=== PATIENT | male | born 1975 | race Asian ===

== ENCOUNTER 2018-11-16 06:01 | Day surgery (SDC) | payer OTHER ==
[~2018-11-16] VITALS: Ht 162.6 cm; Wt 69.9 kg
[2018-11-16] MEDS ORDERED: LIDOCAINE 2% PF 5 ML VIAL. ONE (06:35)
[2018-11-16] MEDS ORDERED: ONDANSETRON PF 4 MG/2 ML VIAL. ONE (06:35)
[2018-11-16] MEDS ORDERED: PROPOFOL 20 ML IV ONE ×2 (06:35→08:35)
[2018-11-16] MEDS ORDERED: DEXAMETHASONE SOD PHOS 20 MG/5 ML VIAL. ONE (06:35)
[2018-11-16] MEDS ORDERED: ROCURONIUM 50 MG/5 ML VIAL. ONE (06:35)
[2018-11-16] MEDS ORDERED: AMOX875T PO (06:44)
[2018-11-16] MEDS ORDERED: ALBU2.5V8 INH (06:44)
[2018-11-16] MEDS ORDERED: LIDOCAINE 2% TOPICAL JELLY 30GM TUBE. TP ONE (06:55)
[2018-11-16] MEDS ORDERED: GELATIN SPONGE SIZE 100. ONE (06:55)
[2018-11-16] MEDS ORDERED: BUPIVAC MPF-EPI 0.5%-1:200000 30 ML VIAL. ONE (06:55)
[2018-11-16] MEDS ORDERED: LIDOCAINE 1% PF 2 ML VIAL. ID PRN (07:00)
[2018-11-16] MEDS ORDERED: PROCHLORPERAZINE 10 MG/2 ML VIAL. IV PRN (07:00)
[2018-11-16] MEDS ORDERED: MORPHINE SULFATE 4 MG/ML VIAL. IV PRN (07:00)
[2018-11-16] MEDS ORDERED: IV RINGERS,LACTATED 1000ML 1,000 ML IV SCH (07:00)
[2018-11-16] MEDS ORDERED: ONDANSETRON PF 4 MG/2 ML VIAL. IV PRN (07:00)
[2018-11-16] MEDS ORDERED: fentaNYL PF VIAL 100 MCG/2 ML VIAL IV PRN ×2 (07:00)
[2018-11-16] MEDS ORDERED: HYDROmorphone 2 MG/ML VIAL IV PRN (07:00)
[2018-11-16] MEDS ORDERED: MIDAZOLAM HCL/PF 2 MG/2 ML VIAL. ONE (07:43)
[2018-11-16] MEDS ORDERED: fentaNYL PF VIAL 100 MCG/2 ML VIAL ONE (07:44)
[2018-11-16] MEDS ORDERED: ePHEDrine PF IN SALINE 50 MG/5 ML DISP.SYRIN IV ONE (08:16)
[2018-11-16] MEDS ORDERED: PHENYLEPHRINE in 0.9% NACL PF 1 MG/10 ML SYRINGE. IV ONE (08:16)
[2018-11-16] MEDS ORDERED: NEOSTIGMINE 10 MG/10 ML VIAL. ONE (08:19)
[2018-11-16] MEDS ORDERED: GLYCOPYRROLATE 1 MG/5 ML VIAL. ONE (08:19)
[2018-11-16] MEDS ORDERED: LIDOCAINE 2% 100 MG/5 ML SYRINGE. ONE (08:45)
[2018-11-16] MEDS ORDERED: SEVOFLURANE 31 TO 60 MINUTES. IH ONE (08:46)
[2018-11-16] MEDS ORDERED: NEOMY/BACITR/POLYMYXIN OINT PACKET. TP ONE (08:50)
[2018-11-16] MEDS ORDERED: LIDOCAINE 2% JELLY 6ML IN APPLICATOR. ONE (08:59)
--- NOTE | 2018-11-16 09:25 | PDOC ---
BRIEF OPERATIVE NOTE Date: Nov 16, 2018 Pre-Op Diagnosis skin lesion left buttocks pain, bleeding with bowel movements Post-Op Diagnosis same 2/2 anal fissure at 12:00, internal hemorrhoid Procedure Performed EUA rigid proctoscopy hemorrhoidectomy LIS Surgeon Maury Anesthesia Type: General Blood Loss 25cc IV Fluid 800cc Specimens Obtained skin lesion left buttocks hemorrhoid perianal skin tag Findings fissure at 12:00 internal hemorrhoid at 6:00 Complications none Operative Note Wk # [id number] DOMINGO ARROYO MD Nov 16, 2018 09:25
[2018-11-16] MEDS ORDERED: POLYETHYLENE GLYCOL 3350 BTL 238 GM POWDER PO ONE (10:00)
[2018-11-16] MEDS ORDERED: oxyCODONE/APAP 5/325 1 TAB TABLET PO ONE (10:00)
[2018-11-16] MEDS ORDERED: OXYC1TAB15 PO (10:00)
[2018-11-16] MEDS ORDERED: POLY119P4 PO (10:00)
--- NOTE | 2018-11-16 10:00 | OP ---
DATE OF SURGERY: 11/16/2018 PREOPERATIVE DIAGNOSES: Skin lesion, left buttock and bleeding with bowel movements and pain with bowel movements. POSTOPERATIVE DIAGNOSES: Skin lesion, left buttock and bleeding with bowel movements and pain with bowel movements secondary to anal fissure at 12 o'clock, internal hemorrhoid. PROCEDURES: 1. Exam under anesthesia. 2. Rigid proctoscopy. 3. Hemorrhoidectomy. 4. Lateral internal sphincterotomy. SURGEON: Domingo Arroyo M.D. ANESTHESIA: General endotracheal. ESTIMATED BLOOD LOSS: 25 mL. IV FLUIDS: 800 mL. INDICATIONS: The patient is a 42-year-old with pain and bleeding with stools. OPERATIVE FINDINGS: Fissure at 12 o'clock, internal hemorrhoid at 6 o'clock and verruca skin lesion, left buttocks. DESCRIPTION OF PROCEDURE: The patient was brought to the operating suite, given a general endotracheal anesthetic and placed in the prone jackknife position. Digital rectal exam done, which revealed some hypertrophy of the internal sphincter as well as a fissure with sentinel polyp at 12 0'clock. Rigid cystoscope inserted and under direct vision, advanced to 20 cm from the anal verge. Scope was slowly removed. No abnormalities seen, save an internal hemorrhoid at 6 o'clock and above-mentioned external findings. Marcaine 0.5% with epinephrine was infiltrated circumanally. The hemorrhoid at 6 o'clock was removed by placing a proximal 2-0 chromic stitch in the anal canal, incised in the perianal skin and removing the hemorrhoid with LigaSure. The 2-0 chromic was used to close the mucosa. With two fingers in the anal canal, the lateral internal sphincterotomy was isolated at 3 o'clock. A #11 blade was used to divide the sphincter and a gentle 3-finger dilatation carried out. Skin tag at 12 o'clock excised. Hemostasis obtained with local anesthetic and pressure at the 3 o'clock position. When hemostasis was present, the Gelfoam pack was placed in anal canal and sterile dressing applied. Prior to the hemorrhoidectomy and rigid proctoscope, the skin lesion was excised after infiltrating the base with local anesthetic. Wound closed with interrupted 4-0 nylon suture. Sterile dressing applied. The patient was taken out of the prone position, awakened from his anesthetic and taken to the recovery room in satisfactory condition. DOMINGO ARROYO MD DR: George JOB#: [id number] / [id number]
[2018-11-16 10:30] VITALS: BP 126/74
--- NOTE | 2018-11-16 10:45 | DISCH ---
DISCHARGE INSTRUCTIONS Condition on Discharge Condition on Discharge: Stable Activity After Discharge Activity Instructions for Disc: Avoid exertion Lifting Instructions after Dis: No heavy lifting Driving Instructions after Dis: Do not drive today Diet after Discharge Diet after Discharge: Regular Additional Diet Restrictions: STOOL SOFTENERS Wound Incision Care Other wound/incision instructi: SITZ BATHES SEVERAL TIMES A DAY Follow-Up Follow up with: next week DOMINGO ARROYO MD Nov 16, 2018 10:45
--- NOTE | 2018-11-19 17:09 | PATHOLOGY ---
[facility] Accession Number: [id number] . 01 Material submitted: . PART A: SKIN LESION LEFT BUTTOCK PART B: HEMORRHOID PART C: PERIANAL SKIN TAG . 01 Clinical history: . A: Excision lesion left buttock B and C: Hemorrhoid . 02 Diagnosis: A. Skin and subcutaneous tissue, left buttock lesion: - Acrochordon (fibroepithelial polyp). . B. Polypoid segment of anal skin and anorectal mucosa, hemorrhoidectomy: - Hemorrhoids. . C. Segment of skin, perianal region: - Neuroma, with associated fibrosis. . (JPM:mm; 11/19/2018) [facility]/11/19/2018 . 02 Comment: There is no evidence of malignancy. . (JPM:mml; 11/19/2018) . 02 Electronically signed: . Tonny Winters MD, Pathologist NPI- [id number] . 01 Gross description: . A. The specimen is received in formalin, labeled "Tuyet Lewis, skin lesion, left buttock", is a elliptical, ann-brown skin measuring 1.2 x 0.8 cm excised to a depth of 0.8 cm. The skin surface displays a polypoid ann-brown lesion measuring 3.0 x 1.5 x 1.5 cm. The specimen is serially sectioned to show a lancaster-pink cut surface. The specimen is entirely submitted in A1-A3. . B. The specimen is received in formalin, labeled "Tuyet Lewis, hemorrhoid", is a distended, lancaster purple hemorrhoid measuring 2.2 x 1.6 x 1.4 cm. The specimen is serially sectioned to reveal a hemorrhagic cut surface. Instructional Aide tissue is submitted in B1. . C. The specimen is received in formalin, labeled "Debbie, Tuyet, perianal skin tag", is a dome-shaped [id number] skin measuring 1.0 x 0.6 x 0.3 cm. The specimen is inked black, longitudinally bisected and entirely submitted in C1. (SWS; 11/16/2018) [facility] . 02 Pathologist provided ICD-10: L91.8, K64.9, L98.8 . 02 CPT . 139155, 262561, 104060 Specimen Comment: A courtesy copy of this report has been sent to Specimen Comment: [phone], . Specimen Comment: Report sent to Performed at: 01 [facility] [address] [facility] [address], [place] [id number] MD Isaías Smith MD Phone: [phone] Performed at: 02 [facility] [address] [place], [place] [id number] MD Tonny Winters MD Phone: [phone]
[2018-11-26] MEDS ORDERED: NAPR-514 PO (11:42)
[2018-11-26] MEDS ORDERED: HYDR-3164 PO (11:42)
== END 2018-11-16 11:20 | disposition home or self-care (01) ==
LOC: SURG 06:01
PROVIDERS: ATTEND Surgery
PROC: 0DBQXZZ Excision of Anus, External Approach (ICD-10-PCS; principal; 2018-11-16 08:00)
DX: D36.16 Benign neoplasm of peripheral nerves and autonomic nervous system of pelvis (principal); K64.8 Other hemorrhoids; L85.8 Other specified epidermal thickening; L98.8 Other specified disorders of the skin and subcutaneous tissue; R05 Cough; L98.9 Disorder of the skin and subcutaneous tissue, unspecified; Z79.899 Other long term (current) drug therapy
CPT/HCPCS: 11402; 46255; 88304; 88305; A7015; J0696; J1100; J2001; J2250; J2370; J2405; J2704; J2710; J3010; J3490; A4461

== ENCOUNTER → 2019-07-11 | Outpatient (CLI) | payer MEDICAID ==
[2018-11-26 11:48] VITALS: BP 124/71
[~2019-07-11] MED LIST: ALBU2.5V8 INH; AMOX875T PO; HYDR-3164 PO; NAPR-514 PO; OXYC1TAB15 PO; POLY119P4 PO
--- NOTE | 2019-07-11 17:01 | RAD ---
CT abdomen and pelvis without contrast HISTORY: Left renal calculus , , Technique: Computed tomographic images of abdomen and pelvis were performed. No IV contrast administered: CC PQRS Compliance Statement: One or more of the following individualized dose reduction techniques were utilized for this examination: 1. Automated exposure control 2. Adjustment of the mA and/or kV according to patient size 3. Use of iterative reconstruction technique Comparison: November 26, 2018 FINDINGS: Partially calcified right lower hemithorax pleural-based lesion appears unchanged with associated adjacent scarring. No new lung mass. Liver appears stable Spleen is still enlarged at 147 mm compared with 139 mm previously. Gallbladder unremarkable Adrenal glands unremarkable Pancreas stable Right kidney unremarkable 3 small left renal calculi are present. Largest in the lower pole again measures 3 mm. No hydronephrosis. Bladder appears unremarkable Uterus and ovaries unremarkable IMPRESSION: Left renal calculi are stable. No hydronephrosis. Partially calcified right lower lobe pleural-based lesion stable Splenomegaly slightly increased. Electronically signed by: Jez Maguire MD (07/11/2019 4:59 PM) [facility]
== END | disposition home or self-care (01) ==
LOC: CT 10:38
PROVIDERS: ATTEND Family Medicine
DX: N20.0 Calculus of kidney (principal); J98.4 Other disorders of lung; J94.8 Other specified pleural conditions; R16.1 Splenomegaly, not elsewhere classified
CPT/HCPCS: 74176

== ENCOUNTER 2021-07-20 09:12 | Emergency (ER) | payer MEDICAID ==
[~2021-07-20] VITALS: Ht 162.6 cm; Wt 66.2 kg
[2021-07-20 09:40] LABS: BILIRUBIN,URINE NEGATIVE (NEG); CLARITY,URINE CLEAR; COLOR,URINE YELLOW; NITRITE,URINE NEGATIVE (NEG); PROTEIN,URINE NEGATIVE (NEG-TRACE); UROBILINOGEN,URINE 0.2 mg/dL (0.2 mg/dL)
--- NOTE | 2021-07-20 09:41 | PHYS DOC ---
Past Medical History Past Medical History: No Pertinent History Past Surgical History: Other Smoking Status: Never Smoker Alcohol Use: None Drug Use: None General Adult EDM: Chief Complaint: FLANK PAIN HPI: HPI: Patient is a 45 year old male with history of left-sided kidney stone who presents with left-sided pelvic discomfort and dysuria starting yesterday. Pain occasionally wraps around towards the back. No fevers or chills. Does complain of urgency and frequency. No blood in the urine. No nausea/vomiting. No diarrhea. 06/2019 CT: 3 small left renal calculi are present. Largest in the lower pole again measures 3 mm. No hydronephrosis. Bladder appears unremarkable Review of Systems: Review of Systems: Constitutional: Denies fever or chills. [] Eyes: Denies change in visual acuity. [] HENT: Denies nasal congestion or sore throat. [] Respiratory: Denies cough or shortness of breath. [] Cardiovascular: Denies chest pain or edema. [] GI: Denies abdominal pain, nausea, vomiting, bloody stools or diarrhea. [] : Reports dysuria, urgency, frequency, and left pelvic and flank discomfort.. [] Musculoskeletal: Denies back pain or joint pain. [] Integument: Denies rash. [] Neurologic: Denies headache, focal weakness or sensory changes. [] Endocrine: Denies polyuria or polydipsia. [] Lymphatic: Denies swollen glands. [] Psychiatric: Denies depression or anxiety. [] Heart Score: C/O Chest Pain: No Risk Factors: Risk Factors: DM, Current or recent (<one month) smoker, HTN, HLP, family history of CAD, obesity. Risk Scores: Score 0 - 3: 2.5% MACE over next 6 weeks - Discharge Home Score 4 - 6: 20.3% MACE over next 6 weeks - Admit for Clinical Observation Score 7 - 10: 72.7% MACE over next 6 weeks - Early Invasive Strategies Allergies: Allergies: Allergies Coded Allergies Type Severity Reaction Last Updated Verified No Known Drug Allergies 11/16/18 No Physical Exam: PE: Constitutional: Well developed, well nourished, no acute distress, non-toxic appearance. [] HENT: Normocephalic, atraumatic, bilateral external ears normal, oropharynx moist, no oral exudates, nose normal. [] Eyes: PERRLA, EOMI, conjunctiva normal, no discharge. [] Neck: Normal range of motion, no tenderness, supple, no stridor. [] Cardiovascular:Heart rate regular rhythm, no murmur [] Lungs & Thorax: Bilateral breath sounds clear to auscultation [] Abdomen: No abdominal tenderness to palpation. Soft. No rebound or guarding. Skin: Warm, dry, no erythema, no rash. [] Extremities: No tenderness, no cyanosis, no clubbing, ROM intact, no edema. [] Neurologic: Alert and oriented X 3, normal motor function, normal sensory function, no focal deficits noted. [] Psychologic: Affect normal, judgement normal, mood normal. [] EKG: EKG: [] Radiology/Procedures: Radiology/Procedures: [id number] ultrasound showed a small amount of left-sided hydronephrosis as compared to the right which did not have any hydronephrosis. [] Course & Med Decision Making: Course & Med Decision Making Pertinent Labs and Imaging studies reviewed. (See chart for details) Patient 45-year-old male with history of left renal calculi who presents with left lower pelvic pain, dysuria, urgency, frequency. No fevers or chills. Intermittent left-sided flank pain. On arrival is afebrile, hemodynamically stable. Is well-appearing on examination. He has no abdominal tenderness at all on examination. DDx includes UTI, ureteral lithiasis, and infected ureterolithiasis. We will obtain BMP, CBC, UA for initial evaluation and determine need for further imaging. 0940 No evidence of infection. No YANETH. Ultrasound consistent with left-sided hydronephrosis. Likely ureterolithiasis. Pain control is manageable. He has a PCP to follow-up with. We will give him a prescription for tamsulosin and Zofran. Return precautions given. 1051 Gray Disclaimer: Gray Disclaimer: This electronic medical record was generated, in whole or in part, using a voice recognition dictation system. Departure Departure Impression: Primary Impression: Ureterolithiasis Disposition: HOME / SELF CARE / HOMELESS Condition: STABLE Referrals: CHINYERE RODRIGEZ MD (PCP) Schedule an appointment this week. Patient Instructions: Kidney Stones Additional Instructions: You very likely have a kidney stone. For pain tylenol and ibuprofen are best used on a schedule. Please alternate between the two. -Tylenol 1000 mg every 6 hours (do not exceed 4000 mg in one day) -Ibuprofen 400 mg every 6 hours. Take with food. Do not take for more than 1 week. Zofran 4 mg every 6 hours as needed for nausea. To help you pass the kidney stone please take tamsulosin 1 tab daily. Please follow-up with your primary care doctor later this week. Return to the emergency department if you have fever, chills, or worsening pain. Scripts Tamsulosin Hcl (FLOMAX) 0.4 Mg Cap.er.24h 1 CAP PO DAILY, #10 CAP 0 Refills Prov: WHITLEY BARRERA MD 07/20/21 Ondansetron Hcl (ZOFRAN) 4 Mg Tablet 1 TAB PO Q6HRS, #20 TAB Prov: WHITLEY BARRERA MD 07/20/21 WHITLEY BARRERA MD Jul 20, 2021 09:41
[2021-07-20 09:46] LABS: BACTERIA,URINE FEW /HPF (0-FEW)
[2021-07-20 10:20] LABS: BASO % 0 % (0-3); EOS # 0.1 x10^3/uL (0.0-0.7); EOS % 2 % (0-3); HEMATOCRIT 47.9 % (39.0-53.0); HEMOGLOBIN 16.8 g/dL (13.0-17.5); LYMPH # 1.1 x10^3/uL (1.0-4.8); LYMPH % 29 % (24-48); MEAN CORPUSCULAR HEMOGLOBIN 30 pg (25-35); MEAN CORPUSCULAR HGB CONC 35 g/dL (31-37); MEAN CORPUSCULAR VOLUME 86 fL (79-100); MONO # 0.3 x10^3/uL (0.0-1.1); MONO % 7 % (0-9); NEUT # 2.2 x10^3/uL (1.8-7.7); NEUT % 61 % (31-73); PLATELET COUNT 171 x10^3/uL (140-400); RED BLOOD COUNT 5.61 x10^6/uL (4.30-5.70); RED CELL DISTRIBUTION WIDTH 13.2 % (11.5-14.5); WHITE BLOOD COUNT 3.6 x10^3/uL (4.0-11.0)
[2021-07-20 10:28] LABS: CALCIUM 8.8 mg/dL (8.5-10.1); CREATININE 0.9 mg/dL (0.7-1.3); GFR 90.8; POTASSIUM 4.2 mmol/L (3.5-5.1)
[2021-07-20 10:57] VITALS: BP 132/87
[2021-07-20] MEDS ORDERED: ONDA4TAB7 PO (11:01)
[2021-07-20] MEDS ORDERED: TAMS0.4C97 PO (11:01)
== END 2021-07-20 11:10 | disposition home or self-care (01) ==
LOC: ER 09:12
DX: N20.1 Calculus of ureter (principal)
CPT/HCPCS: 36415; 80048; 81001; 85025; 99284